=== PATIENT | male | born 1965 | race Caucasian/White ===

== ENCOUNTER 2018-07-16 11:56 | Inpatient (IN) ==
[2018-07-16] MEDS: NS 1,000 ML IV SCH (13:22)
[2018-07-16] MEDS ORDERED: ZOFRAN IV PRN (16:29)
[2018-07-16] MEDS ORDERED: TYLENOL PO PRN (16:29)
--- NOTE | 2018-07-16 16:33 | GASTROENTEROLOGY CONSULTATION ---
DATE: 07/16/2018 REASON FOR CONSULTATION: Metastatic pancreatic cancer, chronic abdominal pain. HISTORY OF PRESENT ILLNESS: Mr. Hamilton is a 52-year-old gentleman with past medical history of hypertension, GERD, and metastatic pancreatic cancer with ascites and liver metastases, on Abraxane and Gemzar infusions, who presents from home with acute on chronic abdominal pain. The patient reports having abdominal diffusely for the last year, previously treated with bowel regimen and PPI. His primary care doctor, Dr. Jacome, started the patient on Relistor several days ago that resulted in multiple bowel movements per day. He also was on a clear liquid diet over the last several days has been drinking a bowel prep to see if it would help with possible constipation. He describes the pain diffusely and up to 5/10 severity that is worse with eating too much and relieved with bowel movements. He complains of associated nonbloody emesis and nausea for which he takes Zofran. He denies any rectal bleeding or melena. Over the last year, he has lost about 55 pounds and within the last week 5 pounds. He believes that he may be currently fighting a sinus infection, as he has noted increased phlegm, nonproductive cough and dyspnea on exertion recently. His last chemo infusion was 2 weeks ago. He was scheduled for infusion today, which has been postponed given his acute medical issues. He has had EGD and colonoscopy twice within the recent past for evaluation of his abdominal pain that were unremarkable. REVIEW OF SYSTEMS: As per HPI. A 12-point review of systems is otherwise negative. PAST MEDICAL HISTORY: Metastatic pancreatic cancer, ascites, liver metastases, anemia, hypertension, history of alcoholism. PAST SURGICAL HISTORY: Port-A-Cath. FAMILY HISTORY: Prostate cancer, hypertension. SOCIAL HISTORY: Former alcohol abuse. No tobacco or drug use. MEDICATIONS: PPI, Zofran, fentanyl patch, Relistor. ALLERGIES: Penicillin. PHYSICAL EXAMINATION: Temperature is 97.6, heart rate 87, respiratory rate 16, blood pressure 95/72, O2 saturation is 96% on room air. General: The patient is awake, alert and oriented, in no acute distress. Chronically ill appearing. Pale appearing. HEENT: Sclerae anicteric. Moist mucous membranes are moist. Neck: No JVD. No lymphadenopathy. Pulmonary: Clear to auscultation bilaterally. No wheezing, rales, or crackles. Cardiac: Regular rate and rhythm. No murmurs, rubs or gallops. Abdomen: Soft, nondistended. Normoactive bowel sounds. Tender to palpation throughout, moderate, more prominent in the upper abdomen. No rebound or guarding. No appreciable ascites. Extremities: No cyanosis, clubbing or edema. Neurologic : Nonfocal. Psychiatric: Normal affect. DIAGNOSTIC DATA: Labs pending. Imaging: Last CT of abdomen and pelvis in 05/2018 showed improved hepatic metastatic disease and ascites, diminished left adrenal size, and constipation. ASSESSMENT AND PLAN: Mr. Hamilton is a 52-year-old gentleman with history of metastatic pancreatic cancer with ascites and liver metastases, anemia, who presents with acute on chronic abdominal pain in the setting of question opioid induced constipation, underlying malignancy, versus slow transit constipation. The patient reports his symptoms improve with bowel movement and are aggravated with eating. He has had negative workup in the past with EGD and colonoscopy x2. We are awaiting admission labs to evaluate for any acute process. I recommend checking complete metabolic panel as well as CBC and lipase. The patient is scheduled for outpatient CT of abdomen and pelvis with PET on 07/26/2018. I recommend that we consult the patient's primary oncologist, Dr. Villanueva, to see if it would be beneficial to get imaging while he is here in the hospital. 1. Abdominal pain. Continue analgesics as needed for abdominal pain. Recommend clear liquid diet as tolerated, antiemetics, and bowel regimen as needed. It appears the patient developed copious diarrhea with the Relistor. We will consider reintroducing medication if the patient does not have a response with other therapies. 2. Metastatic pancreatic cancer followed by Dr. Villanueva. Undergoing chemotherapy. Last infusion 2 weeks ago. Scheduled for an infusion today which was missed. Recommend consultation with Oncology. 3. History of anemia. We will follow up CBC and transfuse as needed to maintain hemoglobin between 7 and 8. 4. Hypertension. The patient is normotensive currently. 5. Nausea and vomiting. This is chronic in nature. Continue antiemetics as needed as well as PPI. Thank you for this consult. We will follow up with you. Please call with any questions or concerns. cc: MD GIANFRANCO Freeman
[2018-07-16] MEDS ORDERED: ATIVAN PO PRN (17:15)
[2018-07-16] MEDS ORDERED: AMBIEN PO PRN (17:15)
[2018-07-16] MEDS ORDERED: MORPHINE IR PO PRN (17:15)
[2018-07-16] MEDS ORDERED: DURAGESIC 25 MICROGM/HR PATCH TD SCH (17:15)
[2018-07-16] MEDS ORDERED: REGLAN PO PRN (17:15)
--- NOTE | 2018-07-16 17:57 | HISTORY AND PHYSICAL ---
CHIEF COMPLAINT: Acute renal failure. HISTORY OF PRESENT ILLNESS: This 52-year-old white male with stage IV pancreatic cancer is under treatment with chemotherapy through Dr. Villanueva's office. He came by for treatment today and his laboratory showed that he is in acute renal failure with a creatinine of 4.5. Upon further questioning, the patient admits that he has been on a 3 day colon cleanse where he was not eating anything and was taking some kind of concoction which he could not actually describe to me. He stated this was under doctor's orders, but I can think of no doctor who would have given him those orders. PAST MEDICAL HISTORY: 1. Alcoholism in remission. 2. Past history of smoking in remission. 3. Past history of hypertension. SOCIAL HISTORY: The patient does not drink alcohol nor smoke cigarettes. He has moved in with his mother and father, and has the attentive care of his sister as well. ALLERGIES: Penicillin. FAMILY HISTORY: Noncontributory. PAST SURGICAL HISTORY: Noncontributory. REVIEW OF SYSTEMS: Patient denies any fever or chills. He states he has had a cough that was somewhat rattly, but he has not been wheezing or short of breath. He has not had any fever or chills. Denies any chest pain or palpitations. He has not had any nausea or vomiting. He states he has been having trouble with bowel movements, most likely due to pain medication usage, and that was the reason he undertook a colon cleanse. The patient's weight has been remarkably maintained. PHYSICAL EXAMINATION: GENERAL: The patient is alert, oriented, conversive and appropriate. SKIN: Pale. He is bald. HEENT: The sclerae are anicteric. Oral mucosa seems reasonable coloration and his mucosa does not appear parched. LUNGS: Clear to auscultation. CARDIOVASCULAR: Regular. ABDOMEN: Not palpated. EXTREMITIES: Show no peripheral edema. NEURO PSYCH: Mood and affect are appropriate as stated earlier, although he is slightly slow in response, he is generally appropriate. LABORATORIES: I do not have copies of Dr. Villanueva's lab. ASSESSMENT AND PLAN: 1. The patient to be admitted to the hospital for gentle intravenous fluids and hydration. We will check his creatinine daily. 2. The patient's chemotherapy will have to put off. Dr. Villanueva has been consulted, and he is obviously aware of the patient's admission. 3. The patient likely has baseline anemia. We will continue to monitor that. 4. Home medications reinstituted as they were previously. 5. The patient is encouraged to eat and drink. 6. Dr. Rowe was consulted as well for his ongoing gastrointestinal difficulties. 7. The patient has deep venous prophylaxis in place, as well as gastrointestinal prophylaxis. cc: David Jacome MD
[2018-07-17] MEDS: NS 1,000 ML IV SCH ×3 (04:28→22:54)
[2018-07-17 05:16] LABS: BASO# 0.09 X1000 (0.0-0.2); BASO% 2.1 % (0.0-0.8); EOS# 0.03 X1000 (0.0-0.7); EOS% 0.7 % (0.0-10.0); HEMATOCRIT 27.3 % (42.0-52.0); IMM GRAN# 0.27 X1000 (0.0-0.04); IMM GRAN% 6.3 % (0.0-0.5); LYMPH# 1.43 X1000 (1.2-3.4); LYMPH% 33.1 % (20.5-51.1); MCH 32.1 PG (27-31); MCV 97.5 FL (81-99); MONO# 0.96 X1000 (0.11-0.59); MONO% 22.2 % (1.7-9.3); MPV 11.6 FL (7.4-10.4); NEUT# 1.54 X1000 (1.4-6.5); NEUT% 35.6 % (42.2-75.2); PLT 174 X1000 (130-400); RDW 19.7 % (11.5-14.5); WBC 4.32 X1000 (4.8-10.8)
[2018-07-17 05:42] LABS: CALCIUM 8.4 mg/dL (8.8-10.2); CREATININE 3.5 mg/dL (0.7-1.2); POTASSIUM 3.3 mmol/L (3.5-5.1)
[2018-07-17] MEDS: LOVENOX SUBQ SCH (06:25)
[2018-07-17 07:09] LABS: BANDS 2 % (0-1); LYMPHS 26 % (21-51); MONO 20 % (1-9); SEGS 44 % (42-75)
[2018-07-17 07:10] LABS: ANISOCYTOSIS 2+; HYPOCHROM 1+; POIKILOCYTOSIS 1+
[2018-07-17] MEDS: MARINOL PO SCH (08:30)
[2018-07-17] MEDS: ZYLOPRIM PO SCH (08:31)
[2018-07-17] MEDS ORDERED: PRILOSEC PO SCH (09:00)
--- NOTE | 2018-07-17 12:20 | GASTROENTEROLOGY PROGRESS NOTE ---
DATE: 07/17/2018 SUBJECTIVE: No acute overnight events. The patient is afebrile. His abdominal pain has essentially resolved. No nausea or vomiting. He is tolerating a diet. Currently on IV fluids. OBJECTIVE: Vital signs: Temperature 98.1, heart rate 72, respiratory rate 16, blood pressure 100/68, O2 saturation 100% on room air. General: The patient is awake, alert, in no acute distress, chronically ill-appearing. HEENT: Sclerae are anicteric. Moist mucous membranes. Neck: No JVD, no lymphadenopathy. Lungs: Clear to auscultation bilaterally. Cardiac: Regular rate and rhythm, no murmurs. Abdomen: Soft, nontender, nondistended, normoactive bowel sounds, no rebound or guarding. Extremities: No clubbing, cyanosis, or edema. Neurologic: Nonfocal. Psych: Normal affect. LABS: From 07/16 show a white count of 4.3, hemoglobin 9.0 which is higher than his baseline, platelets of 174,000. Sodium 134, potassium 3.3, chloride 104, bicarbonate 22, BUN 38, creatinine 3.5, glucose 86, calcium 8.4. No LFTs. No recent imaging. ASSESSMENT AND PLAN: Mr. Hamilton is a 52-year-old gentleman with a history of metastatic pancreatic cancer with ascites and liver metastasis, chronic anemia, who presents with acute on chronic abdominal pain in a setting of likely opioid-induced constipation. On presentation, he was noted to have acute kidney injury likely from volume depletion as well as hypokalemia. He is currently receiving IV fluids for fluid resuscitation. His presenting abdominal pain has essentially resolved. We discussed his prior bowel regimen including Relistor which caused him diarrhea. He has also been treated with MiraLAX, Linzess, Movantik in the past without any significant improvement of his constipation. He has never been on Amitiza. Will start him on 24 mcg twice a day for now and watch him while he is in house to assess for diarrhea. Will also check liver function panel. 1. Abdominal pain, resolved. 2. Constipation. Will start Amitiza 24 mcg twice a day, minimize narcotics, if possible. Will try to get patient out of bed. 3. Metastatic pancreatic cancer. Patient currently undergoing chemotherapy. His last infusion was 2 weeks ago. Recommend consultation with Oncology. 4. Anemia. Hemoglobin is 9.0, up from his baseline. No overt bleeding. Will continue to monitor. 5. Hypertension. The patient is currently normotensive. 6. Nausea and vomiting, resolved. Continue PPI and antiemetics as needed. 7. Acute kidney injury: secondary to diarrhea; continue IVFs, trending Cr 8. Hypokalemia: from GI losses; replete prn Will follow with you. Please call with any questions or concerns. cc: David Jacome MD [facility]
--- NOTE | 2018-07-17 12:35 | HEMO/ONC CONSULTATION ---
DATE: 07/17/2018 CHIEF COMPLAINT: We are being consulted for further evaluation and management of patient's metastatic pancreatic cancer. HISTORY OF PRESENT ILLNESS: Mr. Hamilton is a 52-year-old male who presented to our clinic yesterday complaining of increased confusion. He had been having a lot of diarrhea over the past few days. The patient said about 3 days ago he was instructed to start on a bowel regimen for detoxification by a provider. The patient says, due to this, he has had diarrhea over the past 3 days. The patient has not been able to eat or drink. The patient has also had increased nausea and, while in the clinic, he was found to have a creatinine of 4.5. The patient's baseline creatinine is around 2.3. He was admitted for further evaluation of his dewex-iu-[id number] renal failure and dehydration. Mr. Hamilton is well known to us in our clinic where he follows up for his metastatic pancreatic adenocarcinoma. The patient was started on Gemzar and Abraxane on 10/23/2017. The patient has been tolerating his chemotherapy very well. His last treatment of chemotherapy was given on 07/07/2018. The patient also has chemotherapy-induced anemia. He has been getting Procrit per NCCN guidelines. The patient last used Procrit on 06/12/2018. PAST MEDICAL HISTORY: Metastatic pancreatic cancer, ascites, liver metastasis, anemia, hypertension, history of alcoholism. PAST SURGICAL HISTORY: Port-A-Cath placement. FAMILY HISTORY: Prostate cancer and hypertension. SOCIAL HISTORY: Former alcohol abuse. No tobacco or illicit drug use. HOME MEDICATIONS: 1. Allopurinol. 2. Colcrys. 3. Dronabinol. 4. Fentanyl. 5. Lorazepam. 6. Reglan. 7. Morphine sulfate. 8. One-A-Day multivitamins. 9. Prilosec. 10. Zofran. 11. Oxycodone 7.5. 12. Protonix. 13. Phenergan. 14. Aldactone. 15. Sucralfate. 16. Vitamin B1. 17. Zinc sulfate. 18. Ambien. REVIEW OF SYSTEMS: Negative except for what is mentioned in the HPI. ALLERGIES: Penicillin. PHYSICAL EXAMINATION: Vital Signs: Temperature 97.9, heart rate 73, respiratory rate 18, blood pressure 108/71. Sat 100% on room air. General: The patient is awake, lying in bed. No acute distress noted. HEENT: Anicteric. Pupils PERRLA. Mucous membranes remain dry. Neck: Trachea in midline. No JVD. Lymph Node Survey: No palpable lymphadenopathy. Lungs: Clear to auscultation. Breath sounds present bilaterally. Cardiovascular: S1, S2. Regular rate and rhythm. Abdomen: Soft, nontender. Bowel sounds present in all 4 quadrants. No hepatosplenomegaly noted. Skin: Warm, dry, and intact. No petechiae, no clubbing, no rashes, no cyanosis. Neurological: Alert and oriented x3. No focal deficits noted. LABORATORY DATA: White cell count 4.32, hemoglobin 9.0, hematocrit 27.3, platelets are 174. Potassium 3.3. BUN 38, creatinine 3.5. ASSESSMENT AND PLAN: 1. Metastatic pancreatic carcinoma: The patient has been getting Gemzar and Abraxane in the clinic. His last chemotherapy was given on 07/09/2018. The patient has been tolerating chemotherapy very well. Once the patient is discharged and back to baseline , we will consider restarting treatment at that time. Continue to monitor. 2. Vglpw-[id number] renal failure: Creatinine improved to 3.5. Continue gentle hydration with IV fluids at this time. Continue to monitor creatinine closely. 3. Anemia: Hemoglobin and hematocrit continue to be stable. This is chemotherapy-induced, and he is on Procrit per NCCN guidelines. The patient last took his Procrit on 06/12/2018. Continue to monitor closely. Transfuse as needed. 4. Pain Management: Continue home medications as ordered. Continue to monitor pain closely. 5. Nausea, vomiting, diarrhea: Continue recommendations per gastroenterology. Plan of care is discussed with Dr. Villanueva. Dictated by CHEL Flores for Abhi Villanueva MD cc: CHEL Flores MD Timothy P. Weirich, MD [facility]
--- NOTE | 2018-07-17 15:09 | PROGRESS NOTE ---
DATE: 07/17/2018 SUBJECTIVE: The patient is asleep in bed but easily aroused. He states he is feeling much better and had the best night's sleep he has had in quite some time. He woke up this morning, feeling better and was able to consume over 90% of his breakfast. He has not had a bowel movement, but felt that that may be imminent. OBJECTIVE: Vital Signs: 98.1, 72, 16, 100/68, 100% saturated on room air. Lungs: Clear. The patient has a mild hacking cough. Cardiovascular: Regular. Extremities: No peripheral edema. DIAGNOSTIC DATA: White cell count 4.3, hemoglobin is 9.0. BUN is 38, creatinine is down to 3.5. ASSESSMENT AND PLAN: 1. The patient's acute renal failure due to dehydration has improved significantly since yesterday. We will continue with IV fluids for another day or 2 to try and get this creatinine number into a trajectory of full recovery. We will recheck labs again in the morning. I have increased his IV fluid rate to 125 mL/h. 2. Gastroenterology (GI) consultation was obtained. The notes have been reviewed. He is going to be starting on some Amitiza to help with bowel movements, and we will try to minimize narcotic use as much as possible. 3. Alcohol abuse, in remission. Aware. 4. Metastatic pancreatic cancer. Dr. Villanueva is following. Until his creatinine recovers, we will likely have to put off any further chemotherapy. cc: David Jacome MD
[2018-07-17] MEDS: PERCOCET-5 PO PRN (21:21)
[2018-07-17] MEDS: AMITIZA PO SCH (21:22)
[2018-07-18] MEDS: NS 1,000 ML IV SCH ×3 (07:30→15:15)
[2018-07-18] MEDS: PRILOSEC PO SCH (07:42)
--- NOTE | 2018-07-18 09:01 | HEMO/ONC PROGRESS NOTE ---
DATE: 07/18/2018 SUBJECTIVE: Patient says he is feeling better at this time. Patient is complaining of some constipation. OBJECTIVE: Vital Signs: Temperature of 98.0 degrees, heart rate 73, respiratory rate 18, blood pressure 104/69, saturating at 95% on room air. General: Patient is awake, lying in bed. No acute distress noted. HEENT: Anicteric. Pupils PERRLA. Mucous membranes appear to be moist. Cardiovascular: S1, S2. Regular rate and rhythm. Chest: Bilateral breath sounds clear to auscultation. Abdomen: Soft. Mildly tender. Bowel sounds present in all 4 quadrants. Neurologic: Alert and oriented x3. No focal deficits noted. Laboratory Data: Labs pending. ASSESSMENT/PLAN: 1. Metastatic pancreatic adenocarcinoma: Once the patient is rehydrated and back to baseline, we will consider restarting treatment outpatient at that time. Continue to monitor. 2. Acute on chronic renal failure: Continue with gentle hydration per primary medical team. The patient is feeling better at this time. 3. Anemia: Hemoglobin and hematocrit continue to be stable. Continue to monitor closely. 4. Pain management: Continue pain medicines as ordered. 5. Constipation: Continue recommendations per gastroenterology. 6. Deep venous thrombosis prophylaxis: Continue Lovenox as ordered. Dictated by CHEL Flores for Abhi Villanueva MD cc: CHEL Flores MD [facility] P[facility]irich[facility]
--- NOTE | 2018-07-18 09:13 | PROGRESS NOTE ---
DATE: 07/18/2018 SUBJECTIVE: The patient is awake and alert in the bed. He expresses no complaints. When asked about shortness of breath, cough, or bowel movements, he responded in the negative. He has had no difficulty. OBJECTIVE: Vital Signs: 98.1, 71, 18, 101/67, 95% saturated. Physical Examination: Lungs: Clear. Cardiovascular: Regular. General: Overall, he is moderately cachectic. Skin: Pale. Neurologic: He is alert, oriented, conversive, and appropriate. Laboratories: The laboratories are pending for today. ASSESSMENT AND PLAN: 1. The patient has acute renal failure. He is being monitored through lab work. We have blood work scheduled to be drawn today but for whatever reason, it has not been undertaken thus far. We will continue intravenous fluids and hopefully, if we have a significant trajectory of recovery, we will be able to discharge the patient soon. I have informed him of this. 2. Pancreatic cancer. Aware. 3. Constipation. This has been addressed by Dr. Tran. Hopefully, we can keep his colonic activity intact post discharge. cc: David Jacome MD
[2018-07-18] MEDS: AMITIZA PO SCH ×2 (09:14→20:30)
[2018-07-18] MEDS: ZYLOPRIM PO SCH (09:15)
[2018-07-18] MEDS: LOVENOX SUBQ SCH (09:15)
[2018-07-18] MEDS: MARINOL PO SCH (09:54)
--- NOTE | 2018-07-18 11:08 | GASTROENTEROLOGY PROGRESS NOTE ---
DATE: 07/18/2018 SUBJECTIVE: Patient is resting in bed. He is feeling better. He denies any new complaints. He has decreased p.o. intake. He has not moved his bowels today so far. OBJECTIVE: Vital signs: Temperature 98.1 degrees, pulse of 71, respiratory rate 18, blood pressure 101/67, saturating 95% on room air. General Appearance: Moderately nourished, lying in bed, in no acute distress. HEENT: Pale conjunctivae. No icterus. Neck: Supple. Abdomen: Soft, nondistended. No guarding. Extremities: No cyanosis or clubbing. Neuro: Alert, awake, oriented to time, place, and person. LABS: Hemoglobin and hematocrit is 9 and 27.3 from 07/17/2018. No labs drawn today. IMPRESSION AND PLAN: 1. Acute renal failure. He is getting intravenous fluids. This is being managed by the primary care team. 2. Pancreatic cancer. This is being followed by Dr. Villanueva. 3. Constipation. We will start him on Amitiza at 24 mcg b.i.d. We will evaluate the response. 4. Gastrointestinal prophylaxis with proton-pump inhibitors of Prilosec once daily. 5. Chronic pain. He is on morphine instant release 30 mg every 6 hours. We discussed the possibility of lowering down the narcotics, as they are likely contributing to his symptoms. We will also check a KUB to evaluate for constipation today. 6. Above plan was discussed with the patient, and all questions answered. 7. Deep venous thrombosis prophylaxis with Lovenox. 8. Please call us if you have any other questions. cc: MD David Lucero MD
--- NOTE | 2018-07-18 11:39 | Diag Imaging Result Doc PS360 ---
KUB ABDOMEN - 07/18/2018 INDICATION: evaluate for constipation or obstruction COMPARISON: 11/20/2017 FINDINGS: There is moderate constipation primarily of the transverse colon. No bowel obstruction or free air. IMPRESSION: Constipation. Electronically signed by Juan Lombardi 07/18/2018 11:37 AM
[2018-07-18 15:14] LABS: CREATININE 2.9 mg/dL (0.7-1.2)
[2018-07-18 15:37] LABS: BASO# 0.14 X1000 (0.0-0.2); BASO% 1.8 % (0.0-0.8); EOS# 0.01 X1000 (0.0-0.7); EOS% 0.1 % (0.0-10.0); HEMATOCRIT 28.6 % (42.0-52.0); HEMOGLOBIN 9.2 g/dL (14.0-18.0); IMM GRAN# 0.59 X1000 (0.0-0.04); IMM GRAN% 7.7 % (0.0-0.5); LYMPH# 1.45 X1000 (1.2-3.4); MCH 31.5 PG (27-31); MCHC 32.2 g/dL (33-37); MCV 97.9 FL (81-99); MONO# 1.32 X1000 (0.11-0.59); MONO% 17.3 % (1.7-9.3); MPV 11.6 FL (7.4-10.4); NEUT# 4.11 X1000 (1.4-6.5); NEUT% 54.1 % (42.2-75.2); PLT 225 X1000 (130-400); RBC 2.92 XMIL (4.7-6.1); RDW 20.3 % (11.5-14.5); WBC 7.62 X1000 (4.8-10.8)
[2018-07-18 16:14] LABS: ANISOCYTOSIS 2+; BANDS 9 % (0-1); LYMPHS 20 % (21-51); MONO 7 % (1-9); SEGS 60 % (42-75)
[2018-07-18] MEDS: DULCOLAX PR SCH (20:29)
[2018-07-18] MEDS: PERCOCET-5 PO PRN (20:30)
[2018-07-18] MEDS: KLOR-CON PO SCH (20:30)
[2018-07-19] MEDS: PRILOSEC PO SCH (06:11)
[2018-07-19] MEDS: LOVENOX SUBQ SCH (06:12)
[2018-07-19 07:35] LABS: BASO# 0.07 X1000 (0.0-0.2); BASO% 0.9 % (0.0-0.8); HEMATOCRIT 27.4 % (42.0-52.0); IMM GRAN# 0.67 X1000 (0.0-0.04); IMM GRAN% 8.2 % (0.0-0.5); LYMPH# 1.55 X1000 (1.2-3.4); MCHC 32.8 g/dL (33-37); MCV 97.5 FL (81-99); MONO# 1.49 X1000 (0.11-0.59); MONO% 18.3 % (1.7-9.3); MPV 11.6 FL (7.4-10.4); NEUT# 4.38 X1000 (1.4-6.5); NEUT% 53.6 % (42.2-75.2); PLT 221 X1000 (130-400); RBC 2.81 XMIL (4.7-6.1); RDW 20.1 % (11.5-14.5); WBC 8.16 X1000 (4.8-10.8)
[2018-07-19 07:56] LABS: CALCIUM 8.1 mg/dL (8.8-10.2); CREATININE 2.6 mg/dL (0.7-1.2); POTASSIUM 3.4 mmol/L (3.5-5.1)
[2018-07-19 08:19] VITALS: BP 114/78
--- NOTE | 2018-07-19 09:00 | HEMO/ONC PROGRESS NOTE ---
DATE: 07/19/2018 SUBJECTIVE: The patient says that "I had a small bowel movement." The patient says he is slowly starting to feel better. Nausea continues to slowly improve. OBJECTIVE: Vital Signs: Temperature 97.9 degrees heart rate 87, respiratory rate 18, blood pressure 107/76, satting 97% on room air. General: Patient is awake, lying in bed, no acute distress noted. HEENT: Anicteric pupils. PERRLA. Mucous membranes appear to be moist. Cardiovascular: S1, S2. Regular rate and rhythm. Chest: Bilateral breath sounds. Clear to auscultation. Abdomen: Soft, mildly tender. Bowel sounds present in all 4 quadrants. Neurologic: Alert and oriented x3. No focal deficits noted. LABORATORY DATA: White blood cell count is 8.16, hemoglobin 9.0, hematocrit 27.4, platelets are 321. Potassium 3.4, BUN 25, creatinine 2.6. ASSESSMENT AND PLAN: 1. Metastatic pancreatic adenocarcinoma: Once the patient is rehydrated and back to baseline, we will then consider restarting treatment as outpatient at that time. Continue to monitor closely. 2. Acute on chronic renal failure: Creatinine continues to improve. Today it is down to 2.6. Continue hydration per primary medical team. We will continue to monitor. 3. Anemia: This is caused by chemotherapy. Hemoglobin and hematocrit continue to be stable. Continue to monitor. 4. Constipation: The patient did have small bowel movement. Continue recommendations per Gastroenterology. 5. Deep vein thrombosis prophylaxis: Continue Lovenox as ordered. 6. Supportive care: Continue the patient on protein shakes four times daily. Continue to have patient get out of bed as much as possible. Dictated by CHEL Flores for Abhi Villanueva MD Patient seen and examined. Creatinine significantly decreased. He looks well hydrated at this time. He is eating and holding food down. No complaints of nausea. Bowel movements have been regular. Pain management is more than adequate. Agree with Dr. Rowe with decreasing pain medications. I have advised him to take MSIR 15 mg on a when necessary basis. Abhi Villanueva M.D. cc: CHEL Flores MD Timothy P. Weirich, MD [facility]
[2018-07-19] MEDS: KLOR-CON PO SCH (09:10)
[2018-07-19] MEDS: ZYLOPRIM PO SCH (09:11)
[2018-07-19] MEDS: DULCOLAX PR SCH (09:11)
[2018-07-19] MEDS: MARINOL PO SCH (09:11)
[2018-07-19] MEDS: AMITIZA PO SCH (09:11)
--- NOTE | 2018-07-20 08:40 | DISCHARGE SUMMARY ---
ADMISSION DATE: 07/16/2018 DISCHARGE DATE: 07/19/2018 DISCHARGE DIAGNOSES: 1. Acute on chronic renal failure. 2. Dehydration. 3. Constipation, opioid associated. 4. Metastatic pancreatic cancer. CONSULTATIONS: 1. Jose Luis Tran MD, GI. 2. Abhi Villanueva MD, Hem/Onc. HOSPITAL COURSE: A 52-year-old white male with known metastatic pancreatic cancer, who was admitted from the Hem[facility]Onc Clinic after his creatinine had been shown to be 4.5. His baseline is around 2.0. The patient was admitted to the hospital, started on IV fluids, and we eventually got his creatinine down to 2.6. He was showing a clear trajectory of recovery and felt much better as well. It was stressed to him that he will need to keep himself hydrated very aggressively at home, and to eat and drink properly. I have given some potassium and magnesium supplementation for a few days as his potassium was still 3.5 at the time of discharge. Dr. Tran also was consulted about his ongoing constipation. The patient had been undergoing a "colon cleanse" at home, which was partly responsible for his dehydration and acute renal failure. Dr. Tran put the patient on Amitiza and the patient did seem to have some fairly unstrained bowel movements during the hospitalization. We will continue this on an outpatient basis and make adjustments as necessary. The patient is going to follow up with Dr. Villanueva next week. I believe he has a scan and likely some other lab work. We will check the progress of his renal function at that time. The patient was rather insistent on discharge as he is trying to close on selling his house, and was afraid he would miss that deadline. He is stable and has shown a clear trajectory of improvement, although his long-term prognosis is very, very bad. He can followup in my office at any time. cc: David Jacome MD
== END 2018-07-19 12:11 | disposition home or self-care (01) | DRG 683 ==
LOC: DIRADM 11:56 → 3S 12:37 → 3N 07-17 19:15
PROVIDERS: ADMIT Internal Medicine; ATTEND Internal Medicine
CPT/HCPCS: 74000; 74018; 80048; 85025; A9270; J1650; J7030

== ENCOUNTER 2018-09-18 22:00 | Inpatient (IN) ==
[2018-09-18] MEDS ORDERED: NS 1,000 ML IV ONE (23:11)
[2018-09-18] MEDS ORDERED: ATIVAN IV ONE (23:20)
[2018-09-19 00:44] LABS: BASO# 0.01 X1000 (0.0-0.2); BASO% 0.2 % (0.0-0.8); HEMOGLOBIN 10.8 g/dL (14.0-18.0); IMM GRAN# 0.02 X1000 (0.0-0.04); IMM GRAN% 0.3 % (0.0-0.5); LYMPH# 0.71 X1000 (1.2-3.4); LYMPH% 12.4 % (20.5-51.1); MCH 30.6 PG (27-31); MCHC 31.8 g/dL (33-37); MCV 96.3 FL (81-99); MPV 10.7 FL (7.4-10.4); NEUT% 80.1 % (42.2-75.2); PLT 199 X1000 (130-400); RBC 3.53 XMIL (4.7-6.1); RDW 15.7 % (11.5-14.5); WBC 5.74 X1000 (4.8-10.8)
[2018-09-19 01:19] LABS: ALBUMIN 3.1 g/dL (3.5-5.0); CALCIUM 8.5 mg/dL (8.8-10.2); CREATININE 1.7 mg/dL (0.7-1.2); POTASSIUM 3.7 mmol/L (3.5-5.1); TOTAL BILIRUBIN 0.28 mg/dL (0.20-1.00); TOTAL PROTEIN 6.2 g/dL (6.3-8.3)
[2018-09-19] MEDS ORDERED: NS 1,000 ML IV ONE (01:59)
[2018-09-19 03:37] LABS: URINE SOURCE CATH
[2018-09-19 04:17] LABS: BILIRUBIN URINE NEGATIVE (NEGATIVE); BLOOD URINE NEGATIVE (NEGATIVE); COLOR STRAW; GLUCOSE URINE NEGATIVE (NEGATIVE); KETONE URINE NEGATIVE (NEGATIVE); LEUKOCYTES URINE NEGATIVE (NEGATIVE); NITRITE URINE NEGATIVE (NEGATIVE); PROTEIN URINE NEGATIVE (NEGATIVE); TURBIDITY URINE CLEAR (CLEAR); UR EPITHELIAL CELLS <10 /HPF (<10); URINE BACTERIA NEGATIVE /HPF; URINE RBC <10 /HPF (<10); URINE WBC <10 /HPF (<10); UROBILINOGEN URINE NORMAL (NORMAL)
[2018-09-19] MEDS ORDERED: HALDOL IM ONE (04:35)
--- NOTE | 2018-09-19 05:41 | PROVIDER DOCUMENTATION ---
This chart was entered by Mariel Connor Scribe, acting as scribe for Nilton Davila MD. HPI-General Adult - General Chief Complaint: Altered Mental Status Stated Complaint: hallucinations Time Seen by Provider: 09/18/18 23:00 Source: family Allergies/Adverse Reactions: Patient Allergies Allergy/AdvReac Type Severity Reaction Status Date / Time Penicillins Allergy Severe ANAPHYLAXIS Verified 09/19/18 01:05 Home Medications: Home Medication List Medication Instructions Recorded Confirmed Last Taken Type Multivit-Minerals/FA/Lycopene [One 1 tab PO DAILY 09/21/17 09/19/18 07/16/18 History Daily For Men Tablet] Ondansetron HCl [Zofran] 4 mg PO Q6H PRN 10/30/17 09/19/18 06/04/18 History Zinc Sulfate 50 mg PO DAILY 10/30/17 09/19/18 07/16/18 History Pantoprazole [Protonix] 40 mg PO DAILY 11/03/17 09/19/18 07/16/18 History Metoclopramide [Reglan] 10 mg PO Q6H PRN PRN 02/12/18 09/19/18 06/04/18 History Allopurinol 100 mg PO DAILY PRN PRN 07/16/18 09/19/18 07/16/18 History Colchicine [Colcrys] 0.6 mg PO TID PRN 07/16/18 09/19/18 Unknown History Dronabinol 5 mg PO DAILY 07/16/18 09/19/18 07/16/18 History Lorazepam 1 mg PO Q8H PRN 07/16/18 09/19/18 Unknown History Omeprazole [Prilosec] 20 mg PO BID 07/16/18 09/19/18 07/16/18 History Promethazine [Phenergan] 25 mg PO Q6H PRN PRN 07/16/18 09/19/18 Unknown History Sucralfate 1 gm PO Q6H 07/16/18 09/19/18 Unknown History Alprazolam 0.25 mg PO TID 09/19/18 09/19/18 Unknown History Cyanocobalamin (Vitamin B-12) 5,000 mcg SUBLINGUAL DAILY 09/19/18 09/19/18 U nknown History [Vitamin B-12] Docusate Sodium [Stool Softener] 100 mg PO DAILY PRN PRN 09/19/18 09/19/18 Unknown History Furosemide 20 mg PO EVERY OTHER DAY 09/19/18 09/19/18 Unknown History Linaclotide [Linzess] 72 mcg PO DAILY 09/19/18 09/19/18 Unknown History Metolazone 5 mg PO TID 09/19/18 09/19/18 Unknown History Morphine Ir 30 mg PO Q4H PRN PRN 09/19/18 09/19/18 Unknown History Potassium Gluconate 99 mg PO DAILY 09/19/18 09/19/18 Unknown History Rivaroxaban [Xarelto] 10 mg PO DAILY 09/19/18 09/19/18 Unknown History - History of Present Illness -Gen Adult Nature of Presenting Problems: 52 yom presents w/sister to er w/ c/o ams. sister is historian. sister states pt may have taken too much morphine today and is starting to have hallucinations. pt has liver and pancreatic cancer and is on day 3 of chemo and has port. pt a lso takes xanax and ativan. pt denies fever, chills, and night sweats. Review of Systems - Adult - REVIEW OF SYSTEMS - ADULT Constitutional: reports: no symptoms reported. denies: chills, fever, fatique Eyes: reports: no symptoms reported Ears, Nose, Mouth & Throat: reports: no symptoms reported Cardiovascular: reports: no symptoms reported Respiratory: reports: no symptoms reported Gastrointestinal: reports: no symptoms reported Genitourinary: reports: no symptoms reported Musculoskeletal: reports: no symptoms reported Integumentary: reports: no symptoms reported Neurological: reports: no symptoms reported Psychiatric: reports: see HPI, other (hallucinations). denies: alcohol/drug dependence, depression, emotional problems, insomnia, suicidal thoughts Endocrine: reports: no symptoms reported Hematologic/Lymphatic: reports: no symptoms reported Allergic/Immunologic: reports: no symptoms reported All Other Systems: Reviewed and Negative Past History - Adult - PAST MEDICAL HISTORY-ADULT Review of Records: reports: Old Records Reviewed, Nursing Assessment Review, Medications Reviewed, Social history reviewed & non-contributory. Major Childhood Illnesses: reports: denies history Cardiovascular: reports: HTN Respiratory: reports: denies history Gastrointestinal: reports: denies history Obstetrical/Gynecological: reports: denies history Genitourinary: reports: denies history Musculoskeletal: reports: denies history Neurological: reports: denies history Endocrine/Immune: reports: denies history Other Conditions: reports: other cancer (pancreatic and liver) - PRIOR SURGERIES/PROCEDURES Surgical/Procedure History: reports: none - IMMUNIZATION STATUS Childhood Immunizations: See Nurse Assessment Flu Vaccine: See Nurse Assessment - FAMILY HISTORY Family History: reviewed, not pertinent - SOCIAL HISTORY Smoking: non-smoker Substance Use: none/never Physical Exam-General - PHYSICAL EXAM-ADULT Initial Vital Signs Reviewed: Yes - CONSTITUTIONAL General Appearance: appears well, alert, no apparent distress, thin. negative: severe distress, cachetic, lethargic - EYES Eyes: PERRL/EOMI - HEAD, EARS, NOSE, MOUTH & THROAT HENMT: normocephalic/atraumatic, moist mucous membranes, normal ENT inspection - NECK Neck: non-tender, full range of motion, supple - RESPIRATORY Respiratory: chest non-tender, lungs clear, normal breath sounds - CARDIOVASCULAR Cardiovascular: normal peripheral pulses, regular rate, rhythm - GASTROINTESTINAL (ABDOMEN) Abdominal Exam: normal bowel sounds, non tender, soft - LYMPHATIC Lymphatic: no adenopathy - MUSCULOSKELETAL Back Exam: normal inspection, no CVA tenderness, no vertebral tenderness Extremity: normal range of motion, non-tender, normal inspection Peripheral Pulses: radial (R): 2+, radial (L): 2+ - SKIN Integumentary: normal color, normal turgor, warm/dry - NEUROLOGIC Neurologic: grossly normal, no motor/sensory deficits - PSYCHIATRIC Psych/Mental Status: disoriented x 3, other (when trying to communicate, pt was speaking welsh.). negative: normal mood/affect, normal thought content, normal thought process, oriented x 3, anxious, disheveled, depressed affect Progress - PLAN OF CARE/RESULTS Progress/Plan/Lab Results: Vital Signs - 8 hr 09/18/18 22:28 Pulse Rate 68 Respiratory Rate 18 Blood Pressure 123/79 O2 Sat by Pulse Oximetry 95 Workup negative, negative CT head, negative labs, pt is still altered here, will admit Result Diagrams: 09/19/18 00:30 09/19/18 00:30 - EKG 1 Time of EKG reading by physician:: 23:21 EKG Read and Signed by:: Nilton Davila EKG Interpretation (*Must complete 3 of following elements*): Abnormal (borderline) Rate: 63 Rhythm: NSR HI Interval: normal ST Wave: non-specific ST changes (junctional st depression, probably normal.) - CT/MRI 1 CT Study: Head (Impression: 1. No acute intracranial hemorrhage, mass, or process. 2. Age-related cerebral volume loss.) Impression: Abnormal Comparison with other Films: changes noted Departure - Departure Date of Disposition Decision: 09/19/18 Time of Disposition Decision: 05:41 DIAGNOSIS: Altered mental status Qualifiers: Altered mental status type: delirium Qualified Code(s): R41.0 - Disorientation, unspecified Disposition: ADMITTED INPATIENT 09 Certified Medical Emergency: Emergent Condition: Stable Referrals and Follow-Ups: David Jacome MD [Primary Care Provider] - - Critical Care Note This patient required my direct & personal management of CC.: No Attestation - Physician/ JAMSHID Attestation Patient care was provided by Advanced Practice Provider:: No The physician spent face to face time with patient:: Yes Advanced Practice Provider documentation review:: Supervising physician onsite and consulted in the evaluation and care of this patient. The physician did have a face to face encounter with the patient. This chart was documented by the indicated scribe, (Mariel Connor, [place]) and accurately reflects the services I performed and decisions made by me, Nilton Davila MD, as attested by the provider's signature.
--- NOTE | 2018-09-19 06:35 | Diag Imaging Result Doc PS360 ---
CT HEAD W/O CONTRAST - 09/18/2018 INDICATION: ams COMPARISON: 11/03/2017 FINDINGS: The ventricles and sulci are normal in size and contour. No intracranial mass or hemorrhage. The skull is intact. The sinuses mastoids and middle ears are clear. IMPRESSION: Negative exam. This exam was performed using automated exposure control, adjustment of mA or kV according to patient size, and/or use of iterative reconstruction technique Electronically signed by Juan Lombardi 09/19/2018 6:33 AM
--- NOTE | 2018-09-19 07:09 | Diag Imaging Result Doc PS360 ---
EXAM: CHEST-1 VIEW 09/18/2018 HISTORY: ams TECHNIQUE: AP portable at 2348 COMMENT: The inspiration is suboptimal. There is ill-defined opacity over the right hemidiaphragm which was not present on 11/01/2017. IMPRESSION: Atelectasis and/or pneumonia right lower lobe. Electronically signed by Rinku Hernandez 09/19/2018 7:07 AM
--- NOTE | 2018-09-19 07:59 | EKG Report ---
Test Performed on : 09/18/2018 11:21:09 PM Test Reason : ED. NO EKG ORDER FOR MUSE Blood Pressure : / mmHG Vent. Rate : 063 BPM Atrial Rate : 063 BPM P-R Int : 136 ms QRS Dur : 074 ms QT Int : 422 ms P-R-T Axes : 043 057 044 degrees QTc Int : 431 ms Normal sinus rhythm. Junctional ST depression, probably normal Borderline ECG When compared with ECG of 06-SEP-2017 18:06, No significant change was found Unconfirmed Result
[2018-09-19] MEDS ORDERED: ZOFRAN IV PRN (08:24)
[2018-09-19] MEDS ORDERED: TYLENOL PO PRN (08:24)
[2018-09-19] MEDS ORDERED: TORADOL IV PRN (08:24)
[2018-09-19 09:03] LABS: UR AMPHETAMINES QUAL NONE DETECTED (NONE DETECT); UR BARBITUATES QUAL NONE DETECTED (NONE DETECT); UR BENZODIAZEPIN QUAL NONE DETECTED (NONE DETECT); UR COCAINE QUAL NONE DETECTED (NONE DETECT); UR METHADONE QUAL NONE DETECTED (NONE DETECT); UR OPIATES QUAL PRESUMPTIVE POSITIVE (NONE DETECT); UR OXYCODONE QUAL NONE DETECTED (NONE DETECT); UR PCP QUAL NONE DETECTED (NONE DETECT)
[2018-09-19 09:22] LABS: UR CANNABINOIDS QUAL PRESUMPTIVE POSITIVE (NONE DETECT)
--- NOTE | 2018-09-19 09:27 | HISTORY AND PHYSICAL ---
CHIEF COMPLAINT: Acute mental status change. HISTORY OF PRESENT ILLNESS: This 52-year-old white male is being treated for stage IV pancreatic cancer by Dr. Villanueva. He was seen in the office only a day or 2 ago to follow up on a massive fluid- based weight gain in his lower extremities. Dr. Villanueva had put the patient on metolazone, and he had lost some 30 pounds of fluid over the last week or so. By all reports, at that time he seemed to be doing well. There was no family present, and the patient was not capable of giving a history. In review of the notes, it was stated by the patient's sister that he may have taken too much morphine and was hallucinating. The physical exam by the emergency room physician relates that the patient was actually speaking in Burmese and was not oriented x3 when he arrived. He has since been given sedation and, as stated before, there was no family present at the time of my interview. PAST MEDICAL HISTORY: 1. Alcoholism, in recovery. 2. Pancreatic cancer, stage IV. 3. Chronic normocytic anemia. 4. Stage II kidney. ALLERGIES: Penicillin. PRESENT MEDICATIONS: These will reconciled by the nursing staff. REVIEW OF SYSTEMS: Unable to perform. PHYSICAL EXAMINATION: GENERAL: The patient is asleep in the bed in the emergency room. He does arouse and open his eyes, but does not seem to be oriented or recognize anything. He goes back to sleep quickly. He does move in the bed spontaneously in a fashion that is suggestive of acute delirium. HEENT: The patient is bald and has lost all facial hair and eyelashes, as well as eyebrows. His oral mucosa seems adequately hydrated. NECK: Exam is unremarkable. LUNGS: Clear to auscultation bilaterally. There is clear evidence of weight loss with his ribs showing. CARDIOVASCULAR: Regular and not tachycardic. ABDOMEN: Shows bowel sounds are present. EXTREMITIES: There is a trace of peripheral edema in the lower extremities, although he does not look grossly swollen as described to me previously by Dr. Villanueva. NEUROPSYCHIATRIC: Unable to evaluate. LABORATORY: White cell count 5.7, hemoglobin 10.8, hematocrit 34. BUN 45, creatinine 1.7, alkaline phosphatase 302, albumin 3.1. Urinalysis normal. Urine drug screen is pending. ASSESSMENT AND PLAN: 1. At the present time, I plan to just leave the patient alone. He has had 2 fluid boluses. His vital signs are stable. He has been sedated. I am going to let these medications wash out and re-treat as necessary. Hopefully, he will recover his sensorium. 2. The patient's long-term prognosis is very grim. 3. The patient's stage II kidney, along with the massive swelling that was seen last week, could be a manifestation of simple fluid overload, kidney dysfunction or inferior vena cava occlusion. We will monitor for signs of recurrence, but I am not inclined to work that up terribly, given the fact that his long-term prognosis with the cancer is so very poor. cc: David Jacome MD
[2018-09-19] MEDS ORDERED: COLCRYS PO PRN (13:04)
[2018-09-19] MEDS ORDERED: ZYLOPRIM PO PRN (13:04)
[2018-09-19] MEDS ORDERED: HALDOL IV PRN (20:29)
[2018-09-19] MEDS ORDERED: STERILE WATER INJ. INJ PRN (20:49)
[2018-09-19] MEDS ORDERED: GEODON IM PRN (20:49)
[2018-09-20] MEDS: PRILOSEC PO SCH ×2 (04:37→11:10)
[2018-09-20 08:23] VITALS: BP 109/72
[2018-09-20] MEDS ORDERED: LINACLOTIDE PO SCH (09:00)
[2018-09-20] MEDS ORDERED: THERA M PLUS PO SCH (09:00)
[2018-09-20] MEDS ORDERED: XARELTO PO SCH (09:00)
[2018-09-20] MEDS ORDERED: COLACE PO PRN (09:43)
--- NOTE | 2018-09-21 08:27 | DISCHARGE SUMMARY ---
ADMISSION DATE: 09/18/2018 DISCHARGE DATE: 09/20/2018 DISCHARGE DIAGNOSES: 1. Acute mental status change. 2. Stage IV pancreatic cancer. 3. Effect of psychotropic medication use. HOSPITAL COURSE: The patient was brought in overnight with confusion and agitation. He was actually quite agitated and had to be sedated initially in the emergency room. He does not even remember seeing me there. There was no family present at that initial evaluation, but reading the notes from the ER, he was fairly agitated. Over the course of the next day, the patient was relatively calm, but then in the evening, began to get agitated again and had to receive sedation. When I came in in the morning, he demanded to be discharged. Because the patient faces a terminal diagnosis, I would like to get him home as quickly as possible. I spoke with his mother to see if she could handle him, and she said that as long as he could walk with minimal assistance that she should be able to handle him at home. Both of his parents are elderly, and although he has the support of his sister, she works nights every night. I spoke with the patient's nurse who reported to me that overnight he had been agitated and cursing at everyone who was trying to help him in the room. When I saw him, he was very agitated and demanded to go home, but he was lucid in a general sense. I think he had control of his faculties but was just somewhat emotional. I made a deal with him that if he could walk in the halls with minimal assistance that I would discharge him home. A short time after arriving at my office, the nurse called and stated that he did quite well on walking in the halls and was ready for discharge. The patient had been battling some severe edema in the lower extremities and been given 3 times a day metolazone, with a loss of 30 pounds over the last 7 to 10 days, all represented by lower extremity and genital edema. This had resolved at the time of our encounter in the hospital, and frankly, some of his confusion and weakness may have been due to rapid fluid shifts. His lab was remarkably good, though, and I held most of his psychotropic medications as well as his diuretics during hospitalization. At the time of discharge, the patient's vital signs were stable, and I felt that he was able to go home. At discharge, I changed 2 medications. One was to make Xanax a p.r.n. for agitation and/or anxiety as opposed to a scheduled dose, and I also put him back on Lasix 20 per day and made his metolazone 5 mg 3 times a day into a p.r.n. use medication. The remainder of his medications can go back to their baseline, and hopefully, the patient can recover to a calmer, more lucid existence. cc: David Jacome MD
== END 2018-09-20 11:44 | disposition home or self-care (01) | DRG 948 ==
LOC: SUPCPDRO → ED 22:00 → EDIPHOLD 22:01 → 3N 09-19 23:34
PROVIDERS: ADMIT Internal Medicine; ATTEND Internal Medicine
CPT/HCPCS: 51702; 70450; 71010; 71045; 80053; 80101; 80301; 80307; 80324; 80345; 80346; 80353; 80358; 80361; 80365; 81001; 82140; 82948; 83690; 83992; 84484; 85025; 93005; 94761; 96361; 96372; 96374; 96375; 99285; A9270; C1751; G0431; G0434; G0479; G0480; J1630; J2060; J7030; XXXXX